=== PATIENT | female | born 1935 | race Caucasian/White ===

== ENCOUNTER → 2017-05-13 | Outpatient (CLI) | payer OTHER ==
[~2017-05-13] MED LIST: ATOR20 PO; BENZ100A PO; CIPR500 PO; CODACE30 PO; CODGUAEL PO; HYDCHL25 PO; LOSA25 PO; Motion Sickness25 M1 PO; PRAV20 PO; PROACE100 PO; QUIN10 PO
[2017-05-13 15:57] LABS: Calcium, Urine 31.5 mg/dL (2.0-17.5); Calcium, Urine Calculation 275.6 mg/24hrs (42.0-353.0)
== END | disposition home or self-care (01) ==
LOC: LAB SHORT 10:00 → LAB 10:00 → LAB FUT 05-12 09:45
PROVIDERS: Family Medicine
DX: M81.8 Other osteoporosis without current pathological fracture (principal); E55.9 Vitamin D deficiency, unspecified; E78.9 Disorder of lipoprotein metabolism, unspecified; R79.9 Abnormal finding of blood chemistry, unspecified
CPT/HCPCS: 81050; 82340

== ENCOUNTER 2018-04-14 11:19 | Emergency (ER) | payer OTHER ==
[~2018-04-14] VITALS: Ht 160 cm; Wt 53.5 kg
[~2018-04-14 11:19] MED LIST changes: -LOSA25 PO; -Motion Sickness25 M1 PO; -PRAV20 PO
[2018-04-14] MEDS ORDERED: LOSA25 PO (11:25)
[2018-04-14] MEDS ORDERED: PRAV20 PO (11:26)
[2018-04-14 12:00] LABS: BASOPHILS ABSOLUTE AUTO 0.05 K/mm3 (0.00-0.23); BASOPHILS PERCENT AUTO 1 % (0-2); EOSINOPHILS ABSOLUTE AUTO 0.14 K/mm3 (0.00-0.68); EOSINOPHILS PERCENT AUTO 2 % (0-6); Hemoglobin 12.7 g/dL (11.5-16.0); IMMATURE GRAN ABSOLUTE AUTO 0.02 K/mm3 (0.00-0.10); IMMATURE GRAN PERCENT AUTO 0 % (0-1); LYMPHOCYTES ABSOLUTE AUTO 1.91 K/mm3 (0.84-5.20); LYMPHOCYTES PERCENT AUTO 33 % (21-46); MONOCYTES ABSOLUTE AUTO 0.31 K/mm3 (0.16-1.47); MONOCYTES PERCENT AUTO 5 % (4-13); Mean Corpuscular HGB Conc 32.6 g/dL (31.5-36.5); Mean Corpuscular Volume 86 fL (80-100); Mean Platelet Volume 9.4 fL (9.1-12.4); NEUTROPHILS ABSOLUTE AUTO 3.33 K/mm3 (1.96-9.15); NEUTROPHILS PERCENT AUTO 58 % (41-73); Platelet Count 214 K/mm3 (150-400); RDW Coefficient Variation 13.9 % (11.7-14.2); RDW Standard Deviation 43.8 fL (35.1-46.3); Red Blood Cell Count 4.53 M/mm3 (3.80-5.20); White Blood Cell Count 5.76 K/mm3 (4.00-11.30)
[2018-04-14 12:21] LABS: Alanine Aminotransfer (ALT/SGP 45 U/L (12-78); Albumin, Blood 3.4 g/dL (3.4-5.0); Alk Phos 48 U/L (50-136); Anion Gap 7 mmol/L (6-16); Aspartate Aminotrans (AST/SGOT 31 U/L (12-37); Bilirubin, Total 0.6 mg/dL (0.1-1.0); Blood Urea Nitrogen 20 mg/dL (8-24); CO2, Blood 26 mmol/L (21-32); Calcium, Blood 8.3 mg/dL (8.5-10.1); Chloride, Blood 109 mmol/L (98-108); Creatinine, Blood 0.63 mg/dL (0.40-1.00); Globulin, Blood 3.5 g/dL (2.2-4.0); Glomerular Filtration Rate >60 (60-); Glucose, Blood 107 mg/dL (70-99); Potassium, Blood 3.9 mmol/L (3.5-5.5); Sodium, Blood 142 mmol/L (136-145); Total Protein, Blood 6.9 g/dL (6.4-8.2)
[2018-04-14] MEDS ORDERED: Motion Sickness25 M1 PO (13:06)
== END 2018-04-14 13:22 | disposition home or self-care (01) ==
LOC: ER 11:19
PROVIDERS: Physician Assistant
DX: R42 Dizziness and giddiness (principal); Z88.8 Allergy status to other drugs, medicaments and biological substances; Z79.899 Other long term (current) drug therapy
CPT/HCPCS: 36415; 80053; 85025; 93005; 93010; 99283-25

== ENCOUNTER 2020-10-19 08:07 | Emergency (ER) | payer OTHER ==
[~2020-10-19] VITALS: Ht 160 cm; Wt 49.9 kg
[~2020-10-19 08:07] MED LIST changes: +LOSA25 PO; +Motion Sickness25 M1 PO; +PRAV20 PO
[2020-10-19] MEDS ORDERED: Pravastatin Sod20 MG PO (08:31)
[2020-10-19] MEDS ORDERED: METPRE4DP PO (09:40)
== END 2020-10-19 09:50 | disposition home or self-care (01) ==
LOC: ER 08:07
DX: M54.17 Radiculopathy, lumbosacral region (principal); I10 Essential (primary) hypertension; E78.00 Pure hypercholesterolemia, unspecified; Z88.8 Allergy status to other drugs, medicaments and biological substances; Z79.899 Other long term (current) drug therapy
CPT/HCPCS: 72100; 99283-25

== ENCOUNTER 2021-12-06 17:32 | Inpatient (IN) | payer OTHER ==
[~2021-12-06] VITALS: Ht 157.5 cm; Wt 49.0 kg
[~2021-12-06 17:32] MED LIST changes: +METPRE4DP PO; +Pravastatin Sod20 MG PO
[2021-12-06 18:21] LABS: BASOPHILS ABSOLUTE AUTO 0.03 K/mm3 (0.00-0.23); BASOPHILS PERCENT AUTO 0 % (0-2); EOSINOPHILS PERCENT AUTO 0 % (0-6); Hematocrit 37.8 % (33.0-51.0); Hemoglobin 12.5 g/dL (11.5-16.0); IMMATURE GRAN ABSOLUTE AUTO 0.02 K/mm3 (0.00-0.10); IMMATURE GRAN PERCENT AUTO 0 % (0-1); LYMPHOCYTES ABSOLUTE AUTO 0.57 K/mm3 (0.84-5.20); LYMPHOCYTES PERCENT AUTO 6 % (21-46); MONOCYTES ABSOLUTE AUTO 0.13 K/mm3 (0.16-1.47); MONOCYTES PERCENT AUTO 1 % (4-13); Mean Corpuscular HGB 27.4 pg (26.0-34.0); Mean Corpuscular HGB Conc 33.1 g/dL (31.5-36.5); Mean Corpuscular Volume 83 fL (80-100); Mean Platelet Volume 9.3 fL (9.1-12.4); NEUTROPHILS ABSOLUTE AUTO 8.25 K/mm3 (1.96-9.15); NEUTROPHILS PERCENT AUTO 92 % (41-73); Platelet Count 221 K/mm3 (150-400); RDW Coefficient Variation 14.1 % (11.7-14.2); RDW Standard Deviation 42.5 fL (35.1-46.3); Red Blood Cell Count 4.56 M/mm3 (3.80-5.20)
[2021-12-06 18:48] LABS: Albumin, Blood 4.1 g/dL (3.4-5.0); Albumin/Globulin Ratio 1.2 (0.8-1.8); Bilirubin, Total 0.8 mg/dL (0.1-1.0); Bun/Creatinine Ratio 26.8 (12.0-20.0); Calcium, Blood 8.9 mg/dL (8.5-10.1); Creatinine, Blood 0.56 mg/dL (0.40-1.00); Globulin, Blood 3.4 g/dL (2.2-4.0); Potassium, Blood 3.6 mmol/L (3.5-5.5); Total Protein, Blood 7.5 g/dL (6.4-8.2)
[2021-12-06 23:54] LABS: Source, Urine Clean Catch
[2021-12-06 23:57] LABS: Bilirubin, Urine Neg (Neg); Blood, Urine 5+ (Neg); Glucose Qualitative, Urine 2+ (Neg); Ketones, Urine 4+ (Neg); Leukocyte Esterase, Urine 3+ (Neg); Nitrite, Urine Neg (Neg); Protein, Urine 2+ (Neg); Urobilinogen, Urine NORM (Normal)
[2021-12-07 00:16] LABS: Appearance, Urine Hazy (Clear); Color, Urine Pale Yellow (P-Yellow)
[2021-12-07 00:17] LABS: Amorphous Light (0-Heavy); Bacteria Many /hpf; Squamous Epithelial Cells Rare /hpf (Few); White Blood Cells, Urine TNTC /hpf (0-5)
--- NOTE | 2021-12-07 04:21 | NUR ---
ASSUMED CARE OF PT AT 0225 HRS. PT ARRIVIES TO FLOOR FROM ED FOR A PARTIAL SBO AND KIDNEY STONE. PT IS A&OX4, INDEPENDENT WITH CARES AND IS ABLE TO MAKE NEEDS KNOWN. PAIN IS MANAGED WITH IV MORPHINE PRN. IVF @ 75 HR, HAS BEEN NPO SINCE ARRIVIAL TO FLOOR. PLEASANT WITH CARES AND IS SLEEPING AT THE TIME OF THIS NOTE. WILL CONTINUE TO MONITOR AND GIVE REPORT TO DAY SHIFT RN.
[2021-12-07 04:37] LABS: BASOPHILS ABSOLUTE AUTO 0.02 K/mm3 (0.00-0.23); BASOPHILS PERCENT AUTO 0 % (0-2); EOSINOPHILS ABSOLUTE AUTO 0.01 K/mm3 (0.00-0.68); EOSINOPHILS PERCENT AUTO 0 % (0-6); Hematocrit 34.2 % (33.0-51.0); Hemoglobin 11.4 g/dL (11.5-16.0); IMMATURE GRAN ABSOLUTE AUTO 0.03 K/mm3 (0.00-0.10); IMMATURE GRAN PERCENT AUTO 0 % (0-1); LYMPHOCYTES ABSOLUTE AUTO 1.16 K/mm3 (0.84-5.20); LYMPHOCYTES PERCENT AUTO 14 % (21-46); MONOCYTES ABSOLUTE AUTO 0.55 K/mm3 (0.16-1.47); MONOCYTES PERCENT AUTO 7 % (4-13); Mean Corpuscular HGB 27.9 pg (26.0-34.0); Mean Corpuscular HGB Conc 33.3 g/dL (31.5-36.5); Mean Corpuscular Volume 84 fL (80-100); Mean Platelet Volume 9.7 fL (9.1-12.4); NEUTROPHILS ABSOLUTE AUTO 6.55 K/mm3 (1.96-9.15); NEUTROPHILS PERCENT AUTO 79 % (41-73); Platelet Count 206 K/mm3 (150-400); RDW Standard Deviation 42.8 fL (35.1-46.3); Red Blood Cell Count 4.09 M/mm3 (3.80-5.20); White Blood Cell Count 8.32 K/mm3 (4.00-11.30)
[2021-12-07 04:58] LABS: Albumin, Blood 3.1 g/dL (3.4-5.0); Bilirubin, Total 0.6 mg/dL (0.1-1.0); Bun/Creatinine Ratio 25.3 (12.0-20.0); Calcium, Blood 7.9 mg/dL (8.5-10.1); Creatinine, Blood 0.51 mg/dL (0.40-1.00); Globulin, Blood 3.1 g/dL (2.2-4.0); Potassium, Blood 3.6 mmol/L (3.5-5.5); Total Protein, Blood 6.2 g/dL (6.4-8.2)
--- NOTE | 2021-12-07 10:33 | NUR ---
12/07/21 1033 Tatyana Kerr PATIENT ON SCHEDULED ANTIBIOTICS.
--- NOTE | 2021-12-07 11:59 | NUR ---
PT ARRIVED BACK TO UNIT AT APROX 1130 FROM PACU. GAUZE AND TEGADERM R GROIN C/D/I. PT A/O, DENIES PAIN. DENIES N/V, GIVEN CLEAR LIQUIDS WILL ADVANCE TOLERATED. LUNGS CLEAR T/O, O2 SAT 92% ON RA. HR 58 BUT PT STATES THIS IS NORMAL. OTHER VSS. PLAN IS DC THIS AFTERNOON IF PT REMAINS STABLE. SON NOTIFIED OF PTS RETURN.
[2021-12-07] MEDS ORDERED: HYDR1TAB94 PO (15:13)
== END 2021-12-07 15:48 | disposition home or self-care (01) | DRG 351 ==
LOC: ER 17:32 → SURS 12-07 00:47
PROVIDERS: Family Medicine; Physician Assistant; Student in an Organized Health Care Education/Training Program; Surgery; ADMIT Internal Medicine
PROC: 0YU50JZ Supplement Right Inguinal Region with Synthetic Substitute, Open Approach (ICD-10-PCS; principal; 2021-12-07 09:00)
DX: K40.90 Unilateral inguinal hernia, without obstruction or gangrene, not specified as recurrent (principal); N13.6 Pyonephrosis; E78.5 Hyperlipidemia, unspecified; I10 Essential (primary) hypertension; D64.9 Anemia, unspecified; Z87.442 Personal history of urinary calculi; E78.00 Pure hypercholesterolemia, unspecified; Z90.710 Acquired absence of both cervix and uterus; Z79.899 Other long term (current) drug therapy
CPT/HCPCS: 36415; 80053; 81001; 85025; 87086; 96375; 99285-25; C1781; J0696; J1100; J2270; J2370; J2405; J2704; J2795; J3010; J7030